=== PATIENT | male | born 2000 | race Hispanic/Latino ===

== ENCOUNTER 2024-05-13 07:36 | Emergency (ER) | payer SELFPAY ==
--- NOTE | 2024-05-13 07:51 | ER ---
Nurse's Notes [facility] Name: Kale Herrera Age: 23 yrs Sex: Male : 2000 Arrival Date: 05/13/2024 Time: 07:36 Bed IW1 Private MD: Diagnosis: Acute pharyngitis, unspecified Presentation: 05/13 07:43 Chief complaint: Patient states: the other day I woke up throwing up and I've been iw around my girlfriend and she has a sore throat, was sent home from work today , my throat is itchy. Coronavirus screen: Client presents with at least one sign or symptom that may indicate coronavirus-19. Ebola Screen: No symptoms or risks identified at this time. Initial Sepsis Screen: Does the patient meet any 2 criteria? No. Patient's initial sepsis screen is negative. Does the patient have a suspected source of infection? No. Patient's initial sepsis screen is negative. Risk Assessment: Do you want to hurt yourself or someone else? Patient reports no desire to harm self or others. Onset of symptoms was May 13, 2024. 07:43 Method Of Arrival: Ambulatory iw 07:43 Acuity: MONE 4 iw Historical: - Allergies: 07:45 No Known Allergies; iw - Home Meds: 07:45 None [Active]; iw - PMHx: 07:45 None; iw - PSHx: 07:45 None; iw - Immunization history:: Adult Immunizations. - Infectious Disease History:: Denies. - Social history:: Smoking status: Reported history of juuling and/or vaping. - Family history:: not pertinent. Screenin:49 [facility] ED Fall Risk Assessment (Adult) History of falling in the last 3 months, iw including since admission No falls in past 3 months (0 pts) Confusion or Disorientation No (0 pts) Intoxicated or Sedated No (0 pts) Impaired Gait No (0 pts) Mobility Assist Device Used No (0 pt) Altered Elimination No (0 pt) Score/Fall Risk Level 0 - 2 = Low Risk Oriented to surroundings, Maintained a safe environment. Abuse screen: Denies threats or abuse. Nutritional screening: No deficits noted. Tuberculosis screening: No symptoms or risk factors identified. Assessment: 07:49 General: Appears in no apparent distress. Behavior is calm, cooperative. Pain: iw Complains of pain in throat Pain currently is 0 out of 10 on a pain scale. Neuro: Level of Consciousness is awake, alert, obeys commands, Oriented to person, place, time, situation, Moves all extremities. Full function. Cardiovascular: Patient's skin is warm and dry. Respiratory: Respiratory effort is even, unlabored, Respiratory pattern is regular. GI: Reports vomiting, resolved. Derm: Skin is intact, is healthy with good turgor. Musculoskeletal: Range of motion: intact in all extremities. Vital Signs: 07:43 BP 136 / 85; Pulse 79; Resp 16; Temp 98.5; Pulse Ox 99% on R/A; Weight 140.61 kg; iw Height 6 ft. 3 in. ; Pain 0/10; 07:43 Body Mass Index 38.75 (140.61 kg, 190.5 cm) iw 07:43 Pain Scale: Adult iw ED Course: 07:38 Patient arrived in ED. mg5 07:39 Walter Calvert MD is Attending Physician. rt 07:45 Triage completed. iw 07:45 Arm band placed on. iw 07:50 Patient has correct armband on for positive identification. Provided Education on: wait iw time . 07:50 No provider procedures requiring assistance completed. Patient did not have IV access iw during this emergency room visit. 07:51 Silvina Swan, RN is Primary Nurse. iw Administered Medications: No medications were administered Medication: 07:49 VIS not applicable for this client. iw Outcome: 07:50 Discharge ordered by . rt 07:59 Discharged to home ambulatory, iw 07:59 Condition: good 07:59 Discharge instructions given to patient, Instructed on discharge instructions, follow up and referral plans. Demonstrated understanding of instructions, follow-up care, 08:00 Patient left the ED. iw Signatures: Silvina Swan RN RN iw Walter Calvert MD MD rt Jeanna Dean mg5
--- NOTE | 2024-05-13 07:51 | EDPHYS ---
Physician Documentation [facility] Name: Kale Herrera Age: 23 yrs Sex: Male : 2000 Arrival Date: 05/13/2024 Time: 07:36 Bed IW1 Private MD: ED Physician Walter Calvert HPI: 05/13 09:07 This 23 yrs old Male presents to ER via Ambulatory with complaints of Dr Vonda. rt 09:07 Patient presents to the ED requesting a work note. Patient states that he had 1 episode rt of vomiting about 2 days ago, denies any current vomiting. States that his girlfriend is sick, reports a tickle to his throat but denies any obvious sore throat. Denies other acute complaints at this time, symptoms are mild in severity, no other aggravating elevating factors.. Historical: - Allergies: 07:45 No Known Allergies; iw - Home Meds: 07:45 None [Active]; iw - PMHx: 07:45 None; iw - PSHx: 07:45 None; iw - Immunization history:: Adult Immunizations. - Infectious Disease History:: Denies. - Social history:: Smoking status: Reported history of juuling and/or vaping. - Family history:: not pertinent. ROS: 09:07 Constitutional: Negative for fever, chills, and weight loss, Cardiovascular: Negative rt for chest pain, palpitations, and edema, Respiratory: Negative for shortness of breath, cough, wheezing, and pleuritic chest pain, MS/Extremity: Negative for injury and deformity, Skin: Negative for injury, rash, and discoloration, Neuro: Negative for headache, weakness, numbness, tingling, and seizure, 09:07 Abdomen/GI: Positive for vomiting, Negative for abdominal pain, Exam: 09:07 Constitutional: This is a well developed, well nourished patient who is awake, alert, rt and in no acute distress. Chest/axilla: Normal chest wall appearance and motion. Nontender with no deformity. No lesions are appreciated. Cardiovascular: Regular rate and rhythm with a normal S1 and S2. No gallops, murmurs, or rubs. Normal PMI, no JVD. No pulse deficits. Respiratory: Lungs have equal breath sounds bilaterally, clear to auscultation and percussion. No rales, rhonchi or wheezes noted. No increased work of breathing, no retractions or nasal flaring. Abdomen/GI: Soft, non-tender, with normal bowel sounds. No distension or tympany. No guarding or rebound. No evidence of tenderness throughout. Skin: Warm, dry with normal turgor. Normal color with no rashes, no lesions, and no evidence of cellulitis. MS/ Extremity: Pulses equal, no cyanosis. Neurovascular intact. Full, normal range of motion. Neuro: Awake and alert, GCS 15, oriented to person, place, time, and situation. Cranial nerves II-XII grossly intact. Motor strength 5/5 in all extremities. Sensory grossly intact. Cerebellar exam normal. Normal gait. 09:07 ENT: Mild posterior pharyngeal erythema without exudates or tonsil hypertrophy, uvula is midline. Vital Signs: 07:43 BP 136 / 85; Pulse 79; Resp 16; Temp 98.5; Pulse Ox 99% on R/A; Weight 140.61 kg; iw Height 6 ft. 3 in. ; Pain 0/10; 07:43 Body Mass Index 38.75 (140.61 kg, 190.5 cm) iw 07:43 Pain Scale: Adult iw MDM: 07:47 Patient medically screened. rt 09:07 Differential Diagnosis Viral syndrome, pharyngitis. Data reviewed: vital signs, nurses rt notes. Test considered but Not performed: Other Details Only very minimal symptoms, stable vital signs, benign physical exam, further diagnostic studies are not indicated. Counseling: I had a detailed discussion with the patient and/or guardian regarding the historical points, exam findings, and any diagnostic results supporting the discharge/admit diagnosis, the need for outpatient follow up, to return to the emergency department if symptoms worsen or persist or if there are any questions or concerns that arise at home. Administered Medications: No medications were administered Disposition Summary: 05/13/24 07:50 Discharge Ordered Notes: Location: Home rt Condition: Stable rt Diagnosis - Acute pharyngitis, unspecified rt Followup: rt - With: Private Physician - When: 2 - 3 days - Reason: Discharge Instructions: - Discharge Summary Sheet rt - Pharyngitis rt Forms: - Work release form rt - Medication Reconciliation Form rt - Antibiotic Education rt - Prescription Opioid Use rt - Patient Portal Instructions rt - Leadership Thank You Letter rt Signatures: Silvina Swan RN RN iw Walter Calvert, MD rt
[2024-05-13 08:10] VITALS: BP 136/85; TEMP 98.5; O2SAT 99
== END 2024-05-13 08:00 | disposition home or self-care (01) ==
LOC: ER 07:36
DX: J02.9 Acute pharyngitis, unspecified (principal); F17.290 Nicotine dependence, other tobacco product, uncomplicated
CPT/HCPCS: 99282